=== PATIENT | female | born 1965 | race Caucasian/White ===

== ENCOUNTER → 2018-05-09 12:06 | Outpatient (CLI) | payer BC, SELFPAY ==
[2018-05-09 12:43] LABS: Basophils # 0.1 K/mm3 (0-0.2); Basophils % 0.9 % (0.1-2.0); Eosinophils # 0.3 K/mm3 (0.0-0.4); Eosinophils % 4.2 % (0.1-12.0); Hematocrit 46.1 % (37.0-47.0); Hemoglobin 14.5 g/dL (12.2-16.2); Lymphocytes # 2.2 K/mm3 (0.7-4.5); Lymphocytes % 32.9 K/mm3 (10-50); Mean Corpuscular HGB Conc 31.5 g/dL (31.8-35.4); Mean Corpuscular Hemoglobin 28.5 pg (27.0-31.2); Mean Corpuscular Volume 90.4 fl (81-99); Mean Platelet Volume 6.9 fl (7.4-10.4); Monocytes # 0.3 K/mm3 (0.1-1.0); Monocytes % 4.9 % (1.7-9.3); Neutrophils # 3.8 K/mm3 (1.8-7.8); Neutrophils % 57.2 % (37.0-80.0); Platelet Count 300 K/mm3 (142-424); Red Cell Distribution Width 13.3 % (11.5-17.5); White Blood Count 6.7 K/mm3 (4.8-10.8)
[2018-05-09 14:27] LABS: Alanine Aminotransferase 39 U/L (12-78); Albumin Level 4.6 gm/dL (3.4-5.0); Albumin/Globulin Ratio 1.3 (1.1-1.8); Alkaline Phosphatase 99 U/L (46-116); Anion Gap 14.3 mEq/L (5-15); Aspartate Amino Transferase 26 U/L (15-37); Bilirubin,Total 0.4 mg/dL (0.2-1.0); Blood Urea Nitrogen 15 mg/dL (7-18); Calcium 9.7 mg/dL (8.5-10.1); Carbon Dioxide 26 mmol/L (21.0-32.0); Chloride 108 mmol/L (98-107); Chol/HDL Ratio 3.3 (1-3.5); Cholesterol 194 mg/dL (140-200); Creatinine,Serum 0.76 mg/dL (0.55-1.02); Estimated Glomerular Filt Rate 79 ml/min (>60); Ferritin 129 ng/mL (8-388); GFR (African American) 96 ML/MIN (>60); Globulin 3.6 gm/dl (1.3-3.2); Glucose 90 mg/dL (74-106); HDL Cholesterol 59 mg/dL (29-89); LDL Cholesterol 118 mg/dL (0-130); Potassium 4.3 mmoL/L (3.5-5.1); Sodium 144 mmol/L (136-145); Thyroid Stimulating Hormone 2.35 uIU/ml (0.358-3.740); Total Protein,Serum 8.2 gm/dL (6.4-8.2); Triglycerides 87 mg/dL (30-200); VLDL Cholesterol 17 mg/dL (0-40)
[2018-05-10 17:01] LABS: Folate >20.0 ng/mL (>3.0); Vitamin B12 567 pg/mL (232-1245)
== END ==
PROVIDERS: Visit Provider Nurse Practitioner Family
DX: Z00.00 Encounter for general adult medical examination without abnormal findings (principal); R20.2 Paresthesia of skin; K58.1 Irritable bowel syndrome with constipation
CPT/HCPCS: 36415; 80053; 80061; 82607; 82728; 82746; 84443; 85025

== ENCOUNTER → 2018-05-23 08:48 | Outpatient (CLI) | payer BC, SELFPAY ==
--- NOTE | 2018-05-23 08:54 | MR_ITS ---
MR head/brain wo/w con HISTORY: ITS.REASON: VERTIGO, PARESTHESIA, ABNORMAL GAIT ORDERING PHYSICIAN: Bernie Vazquez PATIENT AGE: 52 years Comparison: 05/09/2011 TECHNIQUE: Standard multiplanar multiecho sequences are performed without and with gadolinium enhancement . FINDINGS: No midline shift, mass effect, intracranial hemorrhage, or hydrocephalus is evident. No enhancing lesions. Cerebellopontine angle, cerebellum, and brainstem are unremarkable. There is normal flanagan-white matter differentiation with no white matter lesions evident. No evidence of acute infarction. The hippocampal gyri are unremarkable and the temporal horns are symmetric. The pituitary and optic chiasm are unremarkable. No cerebellar ectopia. No mastoid effusion or sinus air-fluid level IMPRESSION: Negative MRI of the brain without and with contrast. No acute finding with no significant change
--- NOTE | 2018-05-23 12:57 | HMH.ITSHM ---
MAGNESIUM CITRATE COLLEGAN ASPIRIN 81MG NEXIUM B-12 VINNIE VITAMIN D MILK THISTLE
== END ==
PROVIDERS: Visit Provider Nurse Practitioner Family
DX: R42 Dizziness and giddiness (principal); R20.2 Paresthesia of skin; R26.9 Unspecified abnormalities of gait and mobility
CPT/HCPCS: 70553; A9576

== ENCOUNTER → 2018-06-23 13:31 | Outpatient (POV) | payer BC, SELFPAY | PROVIDERS: Visit Provider Specialist | DX: R26.9 Unspecified abnormalities of gait and mobility (principal); R20.2 Paresthesia of skin | CPT/HCPCS: 95907; 95909 ==

== ENCOUNTER → 2018-10-07 10:30 | Outpatient (POV) | payer BC, SELFPAY | PROVIDERS: Visit Provider Dermatology | DX: Z00.00 Encounter for general adult medical examination without abnormal findings (principal) ==

== ENCOUNTER → 2018-10-21 13:19 | Outpatient (CLI) | payer BC, SELFPAY ==
[2018-10-21 16:42] LABS: T4 (Thyroxine) 9.3 ug/dl (4.7-13.3); Thyroid Stimulating Hormone 3.35 uIU/ml (0.358-3.740); Triiodothryronine (T3) Uptake 32 % (31-39)
== END ==
PROVIDERS: Visit Provider Nurse Practitioner Family
DX: M79.7 Fibromyalgia (principal); R20.2 Paresthesia of skin
CPT/HCPCS: 36415; 84436; 84443; 84479

== ENCOUNTER → 2019-02-13 08:06 | Outpatient (CLI) | payer BC, SELFPAY ==
[2019-02-13 08:56] LABS: Basophils # 0.1 K/mm3 (0-0.2); Eosinophils # 0.3 K/mm3 (0.0-0.4); Eosinophils % 4.8 % (0.1-12.0); Hematocrit 39.9 % (37.0-47.0); Hemoglobin 13.4 g/dL (12.2-16.2); Lymphocytes # 2.4 K/mm3 (0.7-4.5); Lymphocytes % 40.3 % (10-50); Mean Corpuscular HGB Conc 33.5 g/dL (31.8-35.4); Mean Corpuscular Hemoglobin 29.9 pg (27.0-31.2); Mean Corpuscular Volume 89.4 fl (81-99); Mean Platelet Volume 6.8 fl (7.4-10.4); Monocytes # 0.3 K/mm3 (0.1-1.0); Monocytes % 5.5 % (1.7-9.3); Neutrophils # 2.8 K/mm3 (1.8-7.8); Neutrophils % 48.5 % (37.0-80.0); Platelet Count 256 K/mm3 (142-424); Red Blood Count 4.46 M/mm3 (4.20-5.40); Red Cell Distribution Width 13.6 % (11.5-17.5); White Blood Count 5.8 K/mm3 (4.8-10.8)
[2019-02-13 09:54] LABS: Anion Gap 11.1 mEq/L (5-15); Blood Urea Nitrogen 18 mg/dL (7-18); Calcium 9.3 mg/dL (8.5-10.1); Carbon Dioxide 27 mmol/L (21.0-32.0); Chloride 107 mmol/L (98-107); Creatinine,Serum 0.75 mg/dL (0.55-1.02); Estimated Glomerular Filt Rate 80 ml/min (>60); Free Thyroxine Index 3.5 ug/dL (5.93-13.13); GFR (African American) 97 ML/MIN (>60); Glucose 92 mg/dL (74-106); Magnesium 2.3 mg/dL (1.4-2.2); Potassium 4.1 mmoL/L (3.5-5.1); Sodium 141 mmol/L (136-145); T4 (Thyroxine) 10.2 ug/dl (4.7-13.3); Thyroid Stimulating Hormone 2.11 uIU/ml (0.358-3.740); Triiodothryronine (T3) Uptake 34 % (31-39)
[2019-02-16 08:23] LABS: Thyroid Peroxidase Antibodies 7 IU/mL (0-34); Vitamin D 25 Hydroxy 41.3 ng/mL (30.0-100.0)
== END ==
PROVIDERS: Visit Provider Nurse Practitioner Family
DX: R42 Dizziness and giddiness (principal); R79.89 Other specified abnormal findings of blood chemistry
CPT/HCPCS: 36415; 80048; 80053; 82652; 83735; 84436; 84443; 84479; 85025; 86376

== ENCOUNTER → 2019-04-17 09:55 | Outpatient (CLI) | payer BC, SELFPAY ==
--- NOTE | 2019-04-17 | CI_ITS ---
Cerebrovascular Exam Indications: 780.4 Dizziness and giddiness. IMPRESSIONS 1. The left internal carotid artery reveals no evidence of plaque or stenosis. 2. The bilateral vertebral arteries are patent with normal antegrade flow. 3. Study suggests less than 20% stenosis involving the right internal carotid artery. History: Risk factors: Hypertension. Carotid duplex study. Complete study and Doppler flow study including spectral analysis, color and flanagan scale imaging. Height: Height: 157.5cm. Height: 62in. Weight: Weight: 77.6kg. Weight: 170.6lb. Body mass index: BMI: 31.3kg/m^2. Body surface area: BSA: 1.87m^2. Location: Vascular laboratory. Patient status: Outpatient. Tables: Arterial flow: + +--------+--------+ Location V sys V ed + +--------+--------+ Right CCA - proximal 119cm/s 23.6cm/s + +--------+--------+ Right CCA - distal 113cm/s 25.9cm/s + +--------+--------+ Right ECA 105cm/s -------- + +--------+--------+ Right ICA - proximal 83.1cm/s 26.5cm/s + +--------+--------+ Right ICA - mid 133cm/s 32.8cm/s + +--------+--------+ Right ICA - distal 102cm/s 32.8cm/s + +--------+--------+ Right vertebral 61.5cm/s -------- + +--------+--------+ Left CCA - proximal 131cm/s 25.1cm/s + +--------+--------+ Left CCA - distal 95.7cm/s 23.7cm/s + +--------+--------+ Left ECA 105cm/s -------- + +--------+--------+ Left ICA - proximal 99.9cm/s 28.6cm/s + +--------+--------+ Left ICA - mid 109cm/s 34.2cm/s + +--------+--------+ Left ICA - distal 88.7cm/s 29.3cm/s + +--------+--------+ Left vertebral 53.1cm/s -------- + +--------+--------+ Velocity ratios: + + + + + + Right, V sys Right, V ed Left, V sys Left, V ed + + + + + + Max ICA/dist CCA 1.18 1.27 1.14 1.44 + + + + + + (Report amended ) Electronically signed by: Erik Reyes [id number]
== END ==
PROVIDERS: PCP Nurse Practitioner Family; Visit Provider Nurse Practitioner Family
DX: R42 Dizziness and giddiness (principal)
CPT/HCPCS: 93880

== ENCOUNTER → 2019-04-29 13:37 | Outpatient (CLI) | payer BC, SELFPAY ==
--- NOTE | 2019-04-29 13:42 | XR_ITS ---
XR knee RT 4V HISTORY: ITS.REASON: right knee pain ORDERING PHYSICIAN: Demetrius Romero MD PATIENT AGE: 53 years COMPARISON: None FINDINGS: No fracture or dislocation. No lytic or blastic change. Normal mineralization. There are mild osteoarthritic changes of the medial and lateral compartment and patellofemoral joint. IMPRESSION: Mild osteoarthritic changes of the right knee
== END ==
PROVIDERS: PCP Nurse Practitioner Family; Visit Provider Orthopaedic Surgery
DX: M25.561 Pain in right knee (principal); M71.20 Synovial cyst of popliteal space [Baker], unspecified knee
CPT/HCPCS: 73564

== ENCOUNTER → 2019-05-06 08:38 | Outpatient (CLI) | payer BC, SELFPAY ==
--- NOTE | 2019-05-06 08:39 | MR_ITS ---
MR knee RT wo con HISTORY: Lateral and posterior knee pain with limited range of motion ITS.REASON: evaluate for meniscal tear ORDERING PHYSICIAN: Demetrius Romero MD PATIENT AGE: 53 years Comparison: 04/29/2019 TECHNIQUE: Standard multiplanar multiecho sequences are performed without contrast. FINDINGS: Cruciate ligaments are intact. Collateral ligaments have an unremarkable appearance. The patellar tendon and quadriceps tendon are unremarkable. No definite meniscal tear. There is some heterogeneous signal intensity involving the posterior horn of the medial meniscus. This however does not meet the strict MRI criteria for meniscal tear. There are mild osteoarthritic changes of all 3 compartments. There is thinning of the patellar cartilage. There is a small knee joint effusion. No fracture or dislocation. No bone marrow edema. IMPRESSION: 1. No evidence of internal derangement. 2. Chondromalacia patella. 3. Mild osteoarthritic changes with small knee joint effusion
== END ==
PROVIDERS: PCP Nurse Practitioner Family; Visit Provider Orthopaedic Surgery
DX: M25.561 Pain in right knee (principal); G89.29 Other chronic pain
CPT/HCPCS: 73721

== ENCOUNTER → 2019-06-12 07:48 | Outpatient (CLI) | payer BC, SELFPAY ==
[2019-06-12 08:36] LABS: Basophils % 0.8 % (0.1-2.0); Eosinophils # 0.2 K/mm3 (0.0-0.4); Eosinophils % 3.4 % (0.1-12.0); Hematocrit 40.7 % (37.0-47.0); Hemoglobin 12.7 g/dL (12.2-16.2); Lymphocytes # 2.2 K/mm3 (0.7-4.5); Lymphocytes % 42.9 % (10-50); Mean Corpuscular HGB Conc 31.2 g/dL (31.8-35.4); Mean Corpuscular Hemoglobin 27.6 pg (27.0-31.2); Mean Corpuscular Volume 88.5 fl (81-99); Mean Platelet Volume 6.9 fl (7.4-10.4); Monocytes # 0.3 K/mm3 (0.1-1.0); Monocytes % 5.9 % (1.7-9.3); Neutrophils # 2.4 K/mm3 (1.8-7.8); Neutrophils % 46.9 % (37.0-80.0); Platelet Count 268 K/mm3 (142-424); Red Cell Distribution Width 13.4 % (11.5-17.5); White Blood Count 5.1 K/mm3 (4.8-10.8)
[2019-06-12 10:10] LABS: Erythrocyte Sedimentation Rate 13 mm/hr (0-30)
[2019-06-12 11:01] LABS: Alanine Aminotransferase 42 U/L (12-78); Albumin/Globulin Ratio 1.3 (1.1-1.8); Alkaline Phosphatase 79 U/L (46-116); Anion Gap 12.2 mEq/L (5-15); Aspartate Amino Transferase 17 U/L (15-37); Bilirubin,Total 0.4 mg/dL (0.2-1.0); Blood Urea Nitrogen 13 mg/dL (7-18); Calcium 9.3 mg/dL (8.5-10.1); Carbon Dioxide 26 mmol/L (21.0-32.0); Chloride 108 mmol/L (98-107); Chol/HDL Ratio 3.8 (1-3.5); Cholesterol 165 mg/dL (140-200); Creatinine,Serum 0.86 mg/dL (0.55-1.02); Estimated Glomerular Filt Rate 69 ml/min (>60); Free Thyroxine Index 3.2 ug/dL (5.93-13.13); GFR (African American) 83 ML/MIN (>60); Globulin 3.2 gm/dl (1.3-3.2); Glucose 90 mg/dL (74-106); HDL Cholesterol 44 mg/dL (29-89); LDL Cholesterol 93 mg/dL (0-130); Potassium 4.2 mmoL/L (3.5-5.1); Sodium 142 mmol/L (136-145); T4 (Thyroxine) 9.7 ug/dl (4.7-13.3); Thyroid Stimulating Hormone 1.87 uIU/ml (0.358-3.740); Total Protein,Serum 7.2 gm/dL (6.4-8.2); Triglycerides 139 mg/dL (30-200); Triiodothryronine (T3) Uptake 33 % (31-39); VLDL Cholesterol 28 mg/dL (0-40)
[2019-06-13 18:16] LABS: Vitamin B12 767 pg/mL (232-1245)
== END ==
PROVIDERS: Visit Provider Nurse Practitioner Family
DX: Z00.00 Encounter for general adult medical examination without abnormal findings (principal); M12.9 Arthropathy, unspecified; R20.2 Paresthesia of skin; R79.89 Other specified abnormal findings of blood chemistry
CPT/HCPCS: 36415; 80053; 80061; 82607; 84436; 84443; 84479; 85025; 85651

== ENCOUNTER → 2019-07-22 13:32 | Outpatient (CLI) | payer BC, SELFPAY ==
[2019-07-22 15:36] LABS: Free T4 (Free Thyroxine) 1.11 ng/dl (0.76-1.46); Thyroid Stimulating Hormone 2.03 uIU/ml (0.358-3.740)
== END ==
PROVIDERS: Visit Provider Nurse Practitioner Family
DX: E03.9 Hypothyroidism, unspecified (principal)
CPT/HCPCS: 36415; 84439; 84443

== ENCOUNTER → 2020-01-19 08:16 | Outpatient (CLI) | payer BC, SELFPAY ==
[2020-01-19 09:31] LABS: Free T4 (Free Thyroxine) 1.34 ng/dl (0.78-2.19)
[2020-01-19 09:45] LABS: Thyroid Stimulating Hormone 1.78 uIU/mL (0.465-4.68)
== END ==
PROVIDERS: Visit Provider Nurse Practitioner Family
DX: E03.9 Hypothyroidism, unspecified (principal)
CPT/HCPCS: 36415; 84439; 84443

== ENCOUNTER → 2020-03-28 09:05 | Outpatient (CLI) | payer BC, SELFPAY ==
--- NOTE | 2020-03-28 09:20 | US_ITS ---
PROCEDURE: US SOFT TISSUE HEAD AND NECK CLINICAL INDICATION: LIPOMA Palpable mass along the mid back near the scapula COMPARISON: No exams were available for comparison FINDINGS: No discrete abnormality apparent by ultrasound. No cystic or solid lesions evident. IMPRESSION: No discrete abnormality demonstrated. If there is indeed a palpable nodule then CT or MRI may provide further evaluation. Dictated by: John Coe MD 03/28/2020 17:47 Electronically signed by John Coe MD in [place] 03/28/2020 17:47
== END ==
PROVIDERS: PCP Nurse Practitioner Family; Visit Provider Nurse Practitioner Family
DX: Q79.8 Other congenital malformations of musculoskeletal system (principal)
CPT/HCPCS: 76536

== ENCOUNTER → 2020-08-15 09:22 | Outpatient (CLI) | payer BC, SELFPAY ==
[2020-08-15 09:53] LABS: Basophils # 0.1 K/mm3 (0-0.2); Basophils % 1.3 % (0.1-2.0); Eosinophils # 0.2 K/mm3 (0.0-0.4); Eosinophils % 3.8 % (0.1-12.0); Hematocrit 42.3 % (37.0-47.0); Lymphocytes % 30.5 % (10-50); Mean Corpuscular HGB Conc 33.2 g/dL (31.8-35.4); Mean Corpuscular Hemoglobin 30.8 pg (27.0-31.2); Mean Corpuscular Volume 92.9 fl (81-99); Mean Platelet Volume 7.3 fl (7.4-10.4); Monocytes # 0.4 K/mm3 (0.1-1.0); Monocytes % 5.5 % (1.7-9.3); Neutrophils # 3.8 K/mm3 (1.8-7.8); Neutrophils % 58.9 % (37.0-80.0); Platelet Count 282 K/mm3 (142-424); Red Blood Count 4.55 M/mm3 (4.20-5.40); White Blood Count 6.4 K/mm3 (4.8-10.8)
[2020-08-15 10:16] LABS: Chloride 108 mmol/L (98-107)
[2020-08-15 10:17] LABS: Potassium 4.6 mmoL/L (3.5-5.1); Sodium 144 mmol/L (136-145)
[2020-08-15 10:19] LABS: Alanine Aminotransferase 30 U/L (12-78); Alkaline Phosphatase 75 U/L (38-126); Anion Gap 13.6 mEq/L (5-15); Aspartate Amino Transferase 33 U/L (14-36); Bilirubin,Total 0.5 mg/dl (0.2-1.3); Blood Urea Nitrogen 13 mg/dl (7-17); Carbon Dioxide 27 mmol/L (22.0-30.0); Estimated Glomerular Filt Rate 74 ml/min (>60); GFR (African American) 89 ML/MIN (>60)
[2020-08-15 10:20] LABS: Albumin Level 4.6 g/dl (3.5-5.0); Albumin/Globulin Ratio 1.7 (1.1-1.8); Calcium 10.1 mg/dl (8.4-10.2); Globulin 2.7 g/dL (1.3-3.2); Glucose 109 mg/dl (74-100); Total Protein,Serum 7.3 g/dl (6.3-8.2)
[2020-08-15 10:35] LABS: Free T4 (Free Thyroxine) 1.38 ng/dl (0.78-2.19)
[2020-08-15 10:50] LABS: Thyroid Stimulating Hormone 2.32 uIU/mL (0.465-4.68)
== END ==
PROVIDERS: Visit Provider Nurse Practitioner Family
DX: E03.9 Hypothyroidism, unspecified (principal); K92.89 Other specified diseases of the digestive system; K58.2 Mixed irritable bowel syndrome
CPT/HCPCS: 36415; 80053; 84439; 84443; 85025

== ENCOUNTER 2021-01-07 12:37 | Emergency (ER) | payer BC, SELFPAY ==
[2021-01-07 12:40] VITALS: BP 132/70; PULSE 70; RESP 20; TEMP 36.8; O2SAT 97; BMI 32.9
[2021-01-07 13:09] VITALS: BP 134/74; PULSE 72; RESP 16; TEMP 36.8; O2SAT 98; BMI 29.7
--- NOTE | 2021-01-07 13:40 | HMH.EDUTC ---
[facility] [place] Clinical Impression: Right leg pain Disposition: Home, Self-Care Condition on Discharge: Good Instructions: DI for Leg Pain Additional Instructions: Rest the extremity, Elevate the extremity as tolerated while you are resting. Take ibuprofen for pain. I sent in a prescription to your pharmacy. Follow up with Dr. Sanchez (orthopedics) if you continue to have leg pain. I put in a referral but you need to call her office and schedule an appointment. Follow up with your regular doctor. GO TO THE ER FOR ANY WORSENING SYMPTOMS Prescriptions: Ibuprofen [Ibuprofen 600mg Tablet] 600 mg PO Q6HP PRN #30 tab PRN Reason: Mild Pain Transmission Status: Received by [facility] #[id number] Referrals: Bernie Vazquez APRN [Primary Care Provider] - Ankita Sanchez MD [Physician] - Time of Disposition: 15:44 Medical Decision Making - Medical Records Medical records reviewed: No: I reviewed the patient's medical records. - Sanjay Inquiry Pt receiving controlled substance: No Vital Signs: 01/07/21 12:40 01/07/21 13:09 01/07/21 15:58 Temperature 98.3 F 98.2 F 98.2 F Temperature Source Oral Oral Pulse Rate 72 Pulse Rate [Right Brachial] 70 72 Respiratory Rate 20 16 16 Blood Pressure 134/74 Blood Pressure [Right Arm] 132/70 134/74 Blood Pressure Mean [Right Arm] 90 94 Blood Pressure Source [Right Arm] Automatic Cuff Automatic Cuff Blood Pressure Position [Right Arm] Sitting Sitting 02 Sat by Pulse Oximetry 97 98 Oxygen Delivery Method Room Air Room Air - US Data US Images: Lower Extremity ED US Reviewed: Yes: I have reviewed the patient's US results Preliminary Findings: Normal/NAD [facility] [place] - General Stated complaint: possible blood clot in Rt leg Time Seen by Provider: 01/07/21 13:40 Mode of Arrival: Ambulatory Source of Information: Patient Limitations: No Limitations Description of Symptoms (Recalled from Triage Doc. by RN): pt thinks she may have a blood clot in her leg - History of Present Illness Provider Complaint: She states that she has been having right leg pain and some mild swelling for the past 1 week. She is concerned about possibly having a dvt. She had a blood clot in that leg approx 8 years ago. She takes an aspirin daily since then. She denies any shortness of breath and chest pain. - Related Data Home Medications Medication Instructions Recorded Confirmed Vit D3/Folic Acid/B2/B6/B12 1 each PO DAILY 01/08/19 05/19/19 [Folgard Tablet] collagen (bovine) 100 % topical 1 applic TOPICAL DAILY 04/29/19 05/19/19 powder esomeprazole magnesium 40 mg 40 mg PO DAILY 04/29/19 05/19/19 capsule,delayed release levothyroxine 25 mcg capsule 25 mcg PO DAILY 04/29/19 05/19/19 magnesium 200 mg tablet 200 mg PO DAILY 04/29/19 05/19/19 omega-3 fatty acids 1,000 mg 1,000 mg PO DAILY 04/29/19 05/19/19 capsule vitamin B complex 1 tab PO DAILY 04/29/19 05/19/19 Previous Rx's Medication Instructions Recorded Ibuprofen [Ibuprofen 600mg 600 mg PO Q6HP PRN #30 tab 01/07/21 Tablet] Allergies Allergy/AdvReac Type Severity Reaction Status Date / Time hydrocodone Allergy Unknown ITCHY,DIZZY Verified 05/19/19 14:48 ,VOMITING oxycodone Allergy Unknown ITCHY,DIZZY Verified 05/19/19 14:48 ,VOMITING escitalopram [From Lexapro] Allergy Verified 05/19/19 14:48 - Worker's Comp Is this a Worker's Comp case?: No [facility] History - Hepatitis A Screen Drug use history?: No High risk sexual behaviors?: No History of sexually transmitted infection?: No Currently employed?: No Childcare worker?: No Do you have indoor plumbing?: Yes Do you have electricity?: Yes Attestation statement:: This patient has been screened for Hepatitis A risk factors. I have reviewed the patient's past medical history: Yes Medical History: Reports:: Gastroesophageal Reflux Disease(GERD), Hyperlipidemia, Hypertension Denies:: Diabetes Me
--- NOTE | 2021-01-07 13:47 | CA_ITS ---
APPROVED REPORT Right Lower Extremity Venous Study for DVT. 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 Patient denies trauma. States she had a DVT in the past around 2012. She said her right leg has been hurting clear up to her hip x 1 month. Today while shopping she felt a pop and felt her leg to be pulsating so she decided to be checked out because of her history of DVT. Risk Factors Prior Phlebitis/DVT Obesity Medications Aspirin 81 mg occasionally Vein Imaging CFV (R): compressive, spontaneous, phasic, augmentation FEM (R): compressive, spontaneous, phasic, augmentation POP (R): compressive, spontaneous, phasic, augmentation PTV (R): Compressible GSV (R): compressive, spontaneous, phasic, augmentation SSV (R): Compressible Peroneals (R):Compressible GAS (R): Compressible Findings No evidence of DVT or superficial thrombophlebitis in the veins scanned of the right lower extremity. Conclusion No evidence of DVT or superficial thrombophlebitis in the veins scanned of the right lower extremity. Critical Notification Critical Value: No Physician Notified Date: 01/07/2021 Time: 15:44 Physician Name: Chte Zamudio APRN [facility] Electronically signed by : Hannah Hagan MD 01/12/2021 13:12:56
[2021-01-07 15:58] VITALS: BP 134/74; PULSE 72; RESP 16; TEMP 36.8; O2SAT 98
== END 2021-01-07 15:59 | disposition home or self-care (01) ==
PROVIDERS: Emergency Provider Nurse Practitioner Family; PCP Nurse Practitioner Family
DX: M79.604 Pain in right leg (principal); K21.9 Gastro-esophageal reflux disease without esophagitis; I10 Essential (primary) hypertension; E78.5 Hyperlipidemia, unspecified; Z90.49 Acquired absence of other specified parts of digestive tract; Z79.899 Other long term (current) drug therapy
CPT/HCPCS: 93971; 99202; G0463

== ENCOUNTER → 2021-02-03 09:15 | Outpatient (CLI) | payer BC, SELFPAY ==
[2021-02-03 10:04] LABS: Basophils # 0.1 K/mm3 (0-0.2); Eosinophils # 0.3 K/mm3 (0.0-0.4); Eosinophils % 3.9 % (0.1-12.0); Hemoglobin 13.7 g/dL (12.2-16.2); Lymphocytes # 2.4 K/mm3 (0.7-4.5); Lymphocytes % 35.5 % (10-50); Mean Corpuscular HGB Conc 32.6 g/dL (31.8-35.4); Mean Corpuscular Hemoglobin 29.6 pg (27.0-31.2); Mean Corpuscular Volume 90.6 fl (81-99); Mean Platelet Volume 7.3 fl (7.4-10.4); Monocytes # 0.4 K/mm3 (0.1-1.0); Monocytes % 5.5 % (1.7-9.3); Neutrophils # 3.7 K/mm3 (1.8-7.8); Neutrophils % 54.1 % (37.0-80.0); Platelet Count 284 K/mm3 (142-424); Red Blood Count 4.63 M/mm3 (4.20-5.40); Red Cell Distribution Width 13.8 % (11.5-17.5); White Blood Count 6.8 K/mm3 (4.8-10.8)
[2021-02-03 10:33] LABS: Chloride 108 mmol/L (98-107); Potassium 4.7 mmoL/L (3.5-5.1); Sodium 141 mmol/L (136-145)
[2021-02-03 10:36] LABS: Alanine Aminotransferase 27 U/L (12-78); Albumin Level 4.6 g/dl (3.5-5.0); Albumin/Globulin Ratio 1.4 (1.1-1.8); Alkaline Phosphatase 91 U/L (38-126); Anion Gap 10.7 mEq/L (5-15); Aspartate Amino Transferase 31 U/L (14-36); Bilirubin,Total 0.6 mg/dl (0.2-1.3); Blood Urea Nitrogen 20 mg/dl (7-17); Carbon Dioxide 27 mmol/L (22.0-30.0); Estimated Glomerular Filt Rate 65 ml/min (>60); GFR (African American) 78 ML/MIN (>60); Globulin 3.2 g/dL (1.3-3.2); Total Protein,Serum 7.8 g/dl (6.3-8.2)
[2021-02-03 10:37] LABS: Calcium 9.7 mg/dl (8.4-10.2); Glucose 95 mg/dl (74-100)
[2021-02-03 11:07] LABS: Thyroid Stimulating Hormone 1.57 uIU/mL (0.465-4.68)
[2021-02-03 11:18] LABS: Free T4 (Free Thyroxine) 1.42 ng/dl (0.78-2.19)
== END ==
PROVIDERS: Visit Provider Nurse Practitioner Family
DX: E03.9 Hypothyroidism, unspecified (principal); K58.2 Mixed irritable bowel syndrome
CPT/HCPCS: 36415; 80053; 84439; 84443; 85025

== ENCOUNTER → 2021-08-10 08:19 | Outpatient (CLI) | payer BC, SELFPAY ==
[2021-08-10 08:44] LABS: Basophils % 0.7 % (0.1-2.0); Eosinophils # 0.2 K/mm3 (0.0-0.4); Eosinophils % 4.3 % (0.1-12.0); Hematocrit 42.1 % (37.0-47.0); Hemoglobin 13.7 g/dL (12.2-16.2); Lymphocytes % 36.7 % (10-50); Mean Corpuscular HGB Conc 32.5 g/dL (31.8-35.4); Mean Corpuscular Hemoglobin 30.3 pg (27.0-31.2); Mean Corpuscular Volume 93.5 fl (81-99); Monocytes # 0.3 K/mm3 (0.1-1.0); Monocytes % 5.9 % (1.7-9.3); Neutrophils # 2.8 K/mm3 (1.8-7.8); Neutrophils % 52.4 % (37.0-80.0); Platelet Count 272 K/mm3 (142-424); Red Cell Distribution Width 13.4 % (11.5-17.5); White Blood Count 5.4 K/mm3 (4.8-10.8)
[2021-08-10 10:42] LABS: Free T4 (Free Thyroxine) 1.31 ng/dl (0.78-2.19)
[2021-08-10 12:15] LABS: Chloride 108 mmol/L (98-107)
[2021-08-10 12:16] LABS: Potassium 4.3 mmoL/L (3.5-5.1); Sodium 144 mmol/L (136-145)
[2021-08-10 12:18] LABS: Blood Urea Nitrogen 16 mg/dl (7-17)
[2021-08-10 12:19] LABS: Alanine Aminotransferase 30 U/L (12-78); Albumin Level 4.5 g/dl (3.5-5.0); Albumin/Globulin Ratio 1.5 (1.1-1.8); Alkaline Phosphatase 83 U/L (38-126); Anion Gap 16.3 mEq/L (5-15); Aspartate Amino Transferase 33 U/L (14-36); Bilirubin,Total 0.3 mg/dl (0.2-1.3); Calcium 9.4 mg/dl (8.4-10.2); Carbon Dioxide 24 mmol/L (22.0-30.0); Chol/HDL Ratio 5.4 (1-3.5); Cholesterol 215 mg/dl (140-200); Estimated Glomerular Filt Rate 74 ml/min (>60); GFR (African American) 89 ML/MIN (>60); Glucose 98 mg/dl (74-100); HDL Cholesterol 40 mg/dl (40-60); Total Protein,Serum 7.5 g/dl (6.3-8.2); Triglycerides 215 mg/dl (30-150); VLDL Cholesterol 43 mg/dL (0-40)
[2021-08-10 12:30] LABS: Direct LDL Cholesterol 122.64 mg/dL (100-129)
[2021-08-10 12:50] LABS: Thyroid Stimulating Hormone 1.69 uIU/mL (0.465-4.68)
== END ==
PROVIDERS: Visit Provider Nurse Practitioner Family
DX: Z00.00 Encounter for general adult medical examination without abnormal findings (principal); E03.9 Hypothyroidism, unspecified
CPT/HCPCS: 36415; 80053; 80061; 84439; 84443; 85025

== ENCOUNTER 2024-11-14 08:18 | Outpatient (CLI) | payer BC, SELFPAY ==
[2024-11-14 09:19] LABS: Eosinophils % 4.4 % (0.1-12.0); Hematocrit 40.4 % (37.0-47.0); Hemoglobin 13.3 g/dL (12.2-16.2); Lymphocytes % 42.6 % (10-50); Mean Corpuscular HGB Conc 32.9 g/dL (31.8-35.4); Mean Corpuscular Hemoglobin 29.4 pg (27.0-31.2); Mean Corpuscular Volume 89.4 fl (81-99); Mean Platelet Volume 9.3 fl (7.4-10.4); Monocytes % 6.6 % (1.7-9.3); Neutrophils % 45.4 % (37.0-80.0); Platelet Count 247 K/mm3 (142-424); Red Blood Count 4.52 M/mm3 (4.20-5.40); White Blood Count 6.4 K/mm3 (4.8-10.8)
[2024-11-14 09:20] LABS: Basophils # 0.1 K/mm3 (0-0.2); Basophils % 0.8 % (0.1-2.0); Eosinophils # 0.3 K/mm3 (0.0-0.4); Lymphocytes # 2.7 K/mm3 (0.7-4.5); Monocytes # 0.4 K/mm3 (0.1-1.0); Neutrophils # 2.9 K/mm3 (1.8-7.8)
[2024-11-14 10:19] LABS: Alanine Aminotransferase 34 U/L (12-78); Alkaline Phosphatase 67 U/L (38-126); Aspartate Amino Transferase 42 U/L (14-36); Bilirubin,Total 0.8 mg/dl (0.2-1.3); Blood Urea Nitrogen 20 mg/dl (7-17); Calcium 9.5 mg/dl (8.4-10.2); Chloride 108 mmol/L (98-107); Chol/HDL Ratio 6.3 (1-3.5); Cholesterol 220 mg/dl (140-200); Estimated Glomerular Filt Rate 64 ml/min (>60); GFR (African American) 77 ML/MIN (>60); Glucose 92 mg/dl (74-100); HDL Cholesterol 35 mg/dl (40-60); Potassium 4.5 mmoL/L (3.5-5.1); Sodium 141 mmol/L (136-145); Total Protein,Serum 7.4 g/dl (6.3-8.2); Triglycerides 228 mg/dl (30-150); VLDL Cholesterol 46 mg/dL (0-40)
[2024-11-14 10:20] LABS: Albumin Level 4.5 g/dl (3.5-5.0); Albumin/Globulin Ratio 1.6 (1.1-1.8); Anion Gap 9.5 mEq/L (5-15); Carbon Dioxide 28 mmol/L (22.0-30.0); Globulin 2.9 g/dL (1.3-3.2)
[2024-11-14 10:30] LABS: Direct LDL Cholesterol 132.82 mg/dL (100-129)
[2024-11-14 10:50] LABS: Thyroid Stimulating Hormone 2.66 uIU/mL (0.465-4.68)
[2024-11-14 12:03] LABS: Hemoglobin A1C 5.3 % (4.0-6.0)
== END 2024-11-14 23:59 | disposition home or self-care (01) ==
PROVIDERS: PCP Nurse Practitioner Family; Visit Provider Nurse Practitioner Family
DX: E03.9 Hypothyroidism, unspecified (principal); E78.5 Hyperlipidemia, unspecified; M12.9 Arthropathy, unspecified
CPT/HCPCS: 36415; 80050; 80053; 80061; 83036; 84443; 85025

== ENCOUNTER 2025-02-20 09:21 | Emergency (ER) | payer BC, SELFPAY ==
[2025-02-20] VITALS (9 sets, daily range): BP systolic 98–147; BP diastolic 61–80; PULSE 81–97; RESP 16–18; TEMP 36.7–36.9; O2SAT 93–99; BMI 32.0
[2025-02-20 09:39] LABS: Microscopic, Urine URINE MICROSCOPIC (MICROSCOPIC)
[2025-02-20 10:02] LABS: Lactate Venous 1.8 mmol/L (0.4-2.0); VBG Base Excess -4.4 mmol/L (-2.4-2.3); VBG HCO3 21.6 mmol/L (23-30); VBG Oxygen Saturation 67.5 % (50-70); VBG PCO2 42.4 mmol/L (35-51); VBG PH 7.33 mmol/L (7.31-7.41); VBG PO2 35.3 mmol/L (28-40); VBG Total CO2 22.9 mmol/L (23-27)
[2025-02-20 10:10] LABS: Basophils % 0.3 % (0.1-2.0); Eosinophils # 0.1 K/mm3 (0.0-0.4); Eosinophils % 0.9 % (0.1-12.0); Hematocrit 42.9 % (37.0-47.0); Hemoglobin 14.4 g/dL (12.2-16.2); Lymphocytes # 0.4 K/mm3 (0.7-4.5); Lymphocytes % 3.5 % (10-50); Mean Corpuscular HGB Conc 33.6 g/dL (31.8-35.4); Mean Corpuscular Hemoglobin 29.9 pg (27.0-31.2); Mean Corpuscular Volume 89.2 fl (81-99); Mean Platelet Volume 9.3 fl (7.4-10.4); Monocytes # 0.4 K/mm3 (0.1-1.0); Monocytes % 3.1 % (1.7-9.3); Neutrophils # 10.7 K/mm3 (1.8-7.8); Neutrophils % 91.8 % (37.0-80.0); Platelet Count 277 K/mm3 (142-424); Red Blood Count 4.81 M/mm3 (4.20-5.40); White Blood Count 11.6 K/mm3 (4.8-10.8)
[2025-02-20] MEDS: KETOROLAC 30MG/ML VIAL 15 MG IV (10:10)
[2025-02-20] MEDS: 0.9 % SODIUM CHLORIDE 1000ML 1,000 ML 999 ML IV (10:11)
[2025-02-20] MEDS: ONDANSETRON 4MG/2ML VIAL 4 MG IV (10:11)
[2025-02-20 10:12] LABS: Appearance,Urine CLEAR (Clear); Bilirubin,Urine Negative (Negative); Blood, Urine 1+ (Negative); Color,Urine YELLOW (Yellow); Glucose,Urine (UA) Negative (Negative); Ketones,Urine Negative (Negative); Leukocyte Esterase,Urine TRACE (Negative); Nitrate,Urine Negative (Negative); Protein,Urine TRACE (Negative); Specific Gravity, Urine >= 1.030 (1.005-1.030); Urobilinogen,Urine 0.2 EU/dl (0.2)
[2025-02-20 10:14] LABS: Albumin Level 4.9 g/dl (3.5-5.0); Chloride 106 mmol/L (98-107); Potassium 3.8 mmoL/L (3.5-5.1); Sodium 142 mmol/L (136-145)
[2025-02-20 10:17] LABS: Alanine Aminotransferase 34 U/L (12-78); Albumin/Globulin Ratio 1.3 (1.1-1.8); Alkaline Phosphatase 81 U/L (38-126); Anion Gap 14.8 mEq/L (5-15); Aspartate Amino Transferase 37 U/L (14-36); Bilirubin,Total 0.9 mg/dl (0.2-1.3); Blood Urea Nitrogen 20 mg/dl (7-17); Calcium 9.9 mg/dl (8.4-10.2); Carbon Dioxide 25 mmol/L (22.0-30.0); Creatinine Clearance Estimated 74 mL/min (50-200); Estimated Glomerular Filt Rate 73 ml/min (>60); GFR (African American) 88 ML/MIN (>60); Globulin 3.7 g/dL (1.3-3.2); Glucose 133 mg/dl (74-100); Lipase 67 U/L (23-300); Total Protein,Serum 8.6 g/dl (6.3-8.2)
--- NOTE | 2025-02-20 10:20 | HMH.EDGENADL ---
Discharge Plan Disposition Patient Disposition: Home, Self-Care Prescriptions Prescriptions: New ondansetron 4 mg tablet,disintegrating 4 mg PO Q6H PRN (Reason: nausea and vomiting) Qty: 10 0RF No Action levothyroxine 25 mcg capsule 25 mcg PO DAILY esomeprazole magnesium [Nexium] 40 mg capsule,delayed release(DR/EC) 40 mg PO DAILY vitamin B complex [B Complex-Vitamin B12] Tablet 1 tab PO DAILY collagen (bovine) 100 % powder 1 applic TOPICAL DAILY magnesium 200 mg tablet 200 mg PO DAILY omega-3 fatty acids [Fish Oil Concentrate] 1,000 mg capsule 1,000 mg PO DAILY ibuprofen 600 MG tablet 600 mg PO Q6HP PRN (Reason: Mild Pain) Qty: 30 0RF vit D3-folic bkfb-E3-P2-B12 1 EACH tablet 1 each PO DAILY Referrals Follow up/Referrals: Bernie Vazquez APRN [Primary Care Provider] - See instructions Activity Restrictions/Add. Instructions Additional Instructions/Restrictions: Call your family doctor to establish care for this visit to the emergency department and schedule follow-up within 48 hours to ensure improvement. If you have any worsening of your condition or any other concerning signs or symptoms, return to the emergency department or your primary care doctor for further evaluation. Zofran every 6 hours as needed for nausea and vomiting Clinical Impressions Clinical Impression: Vomiting and diarrhea Instructions Patient Instructions: DI for Acute Abdominal Pain Print Language Print Language: Macedonian Discharge ED Provider: Royal [facility] General Adult HPI General Chief complaint: Abdominal Pain Stated complaint: vomiting, abd pain Time Seen by Provider: 02/20/25 09:33 Mode of Arrival: Ambulatory Source of Information: Patient Description of Symptoms (Recalled from ER Triage Doc. by RN): pt presents to ED with c/o left sided abdominal pain and vomitting. pt reports that she does have a hernia and has intermittent problems with this. pt reports vomitting began last night, pain ongoing for the past couple of days. History of Present Illness HPI narrative: Please note that above description of symptoms, in this electronic medical record under categorization of recalled from ER triage doctor by RN are reflective of an initial nursing assessment, however, is not reflective of my full history and physical exam that was personally taken and clarified. Consequentially, this preceding description of symptoms, which may include the patient's categorized chief complaint in the EMR, do not reflect my personal clinical impression, and the ultimate description of history of present illness and patient stated complaints should be deferred to this section of the note. Unless stated otherwise or congruent with this section of the note, additional signs, symptoms, or incongruence should be interpreted as inaccurate with my clinical impression. Related Data Allergies Allergy/AdvReac Type Severity Reaction Status Date / Time hydrocodone Allergy Unknown ITCHY,DIZZY Verified 05/19/19 14:48 ,VOMITING oxycodone Allergy Unknown ITCHY,DIZZY Verified 05/19/19 14:48 ,VOMITING escitalopram (From Lexapro) Allergy Verified 05/19/19 14:[address] [facility] Disclaimer: The information contained in this section may have been updated after the patient was seen, as this information can be updated by other users. Social History Smoking Status: Former smoker alcohol intake: never current occupational status: other Travel in the last 8 weeks: None Have you lived/traveled outside [place] in past 30 days?: No Contact w/someone who lives/traveled outside US past 30 days?: No Exposure to someone with infectious disease in past 14 days?: No Do you have a fever (greater than 100.4 F or 38 C)?: No Have you tested positive for COVID-19: No Exposed to someone with COVID-19 in past 14 days?: No Do you have a sore throat?: No Do you have a cough?: No Do you have any weakness?: No Do you have any diarrhea?: No Are you experiencing any unusual bleeding?: No Do you have any muscle aches/pain?: No Do you have any abdominal pain?: Yes Are you experiencing loss of taste or smell?: No Other Medical History Have you received the Flu Vaccine for this season: No Have you received the Pneumonia Vaccine: No ROS Obtained: Yes All systems reviewed & no additional complaints except as documented Physical Exam General General appearance: alert and in no apparent distress Head Head exam: atraumatic and normocephalic Eye Eye exam: Present normal appearance, PERRL and EOMI Neck Neck exam: Present normal inspection, full ROM and trachea midline Respiratory Respiratory exam: Absent respiratory distress, wheezes, stridor, accessory muscle use or prolonged expiratory phase Cardiovascular Cardiovascular exam: Present regular rate, normal rhythm and other (Pulses equal symmetric in upper and lower extremities) Abdominal Exam Abdominal exam: Present soft and tenderness; Absent distention, guarding, rebound, rigidity or pulsatile mass Abdominal tenderness: Present LUQ and mild Extremities Exam Extremities exam: Absent edema Neurological Exam Neurological exam: Present alert, oriented X3 and CN II-XII intact; Absent motor sensory deficit Skin Skin exam: Present warm and dry; Absent diaphoresis or erythema Medical Decision Making Medical Records Medical records reviewed: Yes I reviewed the patient's medical records. Screening: Per USPSTF and CDC recommendations, given the prevalence of disease in our region, it is our hospital?s policy to screen for HIV and viral Hepatitis for all patients aged 18 and over and those with ongoing risk factors. Sanjay Inquiry Pt receiving controlled substance: No Sanjay was queried for this patient: No Vital Signs: 02/20/25 09:32 02/20/25 09:45 02/20/25 10:00 Temperature 98.5 F Temperature Source Oral Pulse Rate 89 81 Pulse Rate [Left Radial] 97 H Respiratory Rate 16 16 Blood Pressure 125/66 Blood Pressure [Right Arm] 147/80 H Blood Pressure Mean 84 Blood Pressure Mean [Right Arm] 102 Blood Pressure Source [Right Arm] Automatic Cuff Blood Pressure Position [Right Arm] Supine 02 Sat by Pulse Oximetry 98 98 96 Oxygen Delivery Method Room Air 02/20/25 10:30 02/20/25 11:00 02/20/25 11:30 Temperature Temperature Source Pulse Rate 86 84 86 Pulse Rate [Left Radial] Respiratory Rate 16 Blood Pressure 126/67 98/64 L 112/69 Blood Pressure [Right Arm] Blood Pressure Mean 71 Blood Pressure Mean [Right Arm] Blood Pressure Source [Right Arm] Blood Pressure Position [Right Arm] 02 Sat by Pulse Oximetry 93 L 93 L 96 Oxygen Delivery Method Room Air Room Air 02/20/25 12:30 Temperature Temperature Source Pulse Rate 86 Pulse Rate [Left Radial] Respiratory Rate Blood Pressure 115/61 Blood Pressure [Right Arm] Blood Pressure Mean Blood Pressure Mean [Right Arm] Blood Pressure Source [Right Arm] Blood Pressure Position [Right Arm] 02 Sat by Pulse Oximetry 99 Oxygen Delivery Method Lab Data Lab Results 02/20/25 09:31: Urine Color Yellow, Urine Appearance Clear, Urine pH 6.0, Ur Specific Ralston >= 1.030, Urine Protein Trace, Urine Glucose (UA) Negative, Urine Ketones Negative, Urine Blood 1+ A, Urine Nitrate Negative, Urine Bilirubin Negative, Urine Urobilinogen 0.2, Ur Leukocyte Esterase Trace, Urine RBC Occasional, Urine WBC 3-5, Ur Squamous Epith Cells Occasional, Amorphous Sediment 2+, Urine Bacteria Trace 02/20/25 09:35: HCV Ab RANDAL w/Rflx PCR Qn Negative, HIV Ag/Ab Combo Qual Negative 02/20/25 09:54: VBG pH 7.33, VBG pCO2 42.4, VBG pO2 35.3, VBG HCO3 21.6 L, VBG Total CO2 22.9 L, VBG O2 Saturation 67.5, VBG Base Excess -4.4 L, VBG Lactic Acid 1.8 02/20/25 09:55: WBC 11.6 H, RBC 4.81, Hgb 14.4, Hct 42.9, MCV 89.2, MCH 29.9, MCHC 33.6, RDW 13.0, Plt Count 277, MPV 9.3, Neut % (Auto) 91.8 H, Lymph % (Auto) 3.5 L, Mchenry % (Auto) 3.1, Eos % (Auto) 0.9, Baso % (Auto) 0.3, Neut # (Auto) 10.7 H, Lymph # (Auto) 0.4 L, Mchenry # (Auto) 0.4, Eos # (Auto) 0.1, Baso # (Auto) 0.0, Total Counted 100, Neutrophils % (Manual) 92 H, Lymphocytes % (Manual) 6 L, Monocytes % (Manual) 2, Platelet Estimate Normal, RBC Morphology Normal, Sodium 142, Potassium 3.8, Chloride 106, Carbon Dioxide 25, Anion Gap 14.8, BUN 20 H, Creatinine 0.80, Estimated Creat Clear 74, Estimated GFR 73, Est GFR ( Amer) 88, Glucose 133 H, Calcium 9.9, Total Bilirubin 0.9, AST 37 H, ALT 34, Alkaline Phosphatase 81, Total Protein 8.6 H, Albumin 4.9, Globulin 3.7 H, Albumin/Globulin Ratio 1.3, Lipase 67 02/20/25 09:55 02/20/25 09:55 Orders (Tests/Meds): ED MEDICATIONS Discontinued Medications Generic Name Dose Route Start Last Admin Trade Name Freq PRN Reason Stop Dose Admin Sodium Chloride 1,000 mls @ 999 mls/hr 02/20/25 09:53 02/20/25 10:11 Sod Chlor 0.9% 1000ml Bag IV 03/29/25 10:53 999 mls/hr .Q1H1M ONE Administration Iopamidol 75 ml 02/20/25 12:01 02/20/25 12:01 Iopamidol-370 (76%);100ml Bottle IV 02/20/25 12:02 75 ml ONCE ONE Administration Ketorolac Tromethamine 15 mg 02/20/25 09:53 02/20/25 10:10 Ketorolac 30mg/Ml Vial IV 02/20/25 09:54 15 mg ONCE ONE Administration Ondansetron HCl 4 mg 02/20/25 09:53 02/20/25 10:11 Ondansetron 4mg/2ml Vial IV 02/20/25 09:54 4 mg ONCE ONE Administration Sodium Chloride 10 ml 02/20/25 12:01 02/20/25 12:01 Sodium Chloride 0.9% 10ml Syr (Rad Only) IV 02/20/25 12:02 10 ml ONCE ONE Administration ORDERS Category Date Time Status CT abdomen pelvis w con Stat Cat Scan 02/20/25 11:48 Completed CBC w/Auto Diff [Complete Blood Count Auto Diff] Stat Lab 02/20/25 09:55 Completed CMP [Comprehensive Metabolic Panel] Stat Lab 02/20/25 09:55 Completed HIV Combo Stat Lab 02/20/25 09:35 Completed Hepatitis C Ab Qual. W/ RFX Stat Lab 02/20/25 09:35 Completed Lipase Stat Lab 02/20/25 09:55 Completed UA [Urinalysis and Microscopic] Stat Lab 02/20/25 09:31 Completed VBG [Venous Blood Gas] Stat RT 02/20/25 09:54 Completed Medical Decision Narrative: 59-year-old female history of hypertension, hyperlipidemia, fibromyalgia, IBS, hiatal hernia presenting with vomiting and diarrhea. Patient states that she has had 6 episodes of vomiting and diarrhea that lasted a few days over the past 6 months or so. States that they last a couple of days, vomiting, diarrhea, weight loss, then generally self resolved. States that she think she is having symptoms due to her hiatal hernia, but unsure. Woke up in the middle of the night last night, 02/19 and had multiple episodes of vomiting and diarrhea. Nonbloody, nonbilious vomiting, nonbloody diarrhea. No fevers or chills or systemic signs or symptoms. States that she has been shaking a little bit when she has been throwing up and having sweats around throwing up, but has not felt hot or febrile. 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 History was obtained via conversation with patient. On arrival, patient hemodynamically stable, alert, oriented x4, appropriate, GCS 15, moving all extremities spontaneously, pupils equal and reactive to light. Full physical exam performed and significant for very clinically well-appearing female who is in no acute distress, but borderline tachycardic with heart rate in the 90s. Normotensive, hypertensive if anything. Lungs are clear, abdomen is soft, nondistended, minimally tender left upper quadrant and some in the left lower quadrant.. Differential includes PUD, gastritis, enteritis, gastroenteritis, pancreatitis, SBO, colitis, diverticulitis, nephrolithiasis, UTI, cholecystitis, choledocholithiasis, appendicitis, torsion, hepatitis, aortic pathology, mesenteric ischemia among others Patient placed on continuous cardiac monitoring and continuous pulse ox with initial blood pressure 147/80, heart rate 87, saturation 98% on room air. Patient was given fluids and Zofran for symptomatic management and correction of underlying abnormalities. Workup independently interpreted and significant for mild leukocytosis 11.6, but nonactionable overall. VBG with normal pH, mildly decreased bicarb of 21.6. Negative lactate. Chemistry nonactionable, lipase negative. UA with blood isolated. Reevaluation, patient states that she still having pain, wants to make sure she does not have a kidney stone or some kind of abnormality with her hernia. Although her symptoms are largely resolved at this point with fluids and Zofran, I do not feel this is unreasonable. CT ordered. On independent interpretation of imaging, no evidence of current hiatal hernia. Incidental left renal cyst, no evidence of acute intra-abdominal pathology otherwise. See radiology read for full review of final results. On reevaluation, patient resting comfortably. Given patient presentation, workup, history, this most likely represents gastroenteritis. because patient at baseline without signs or symptoms of clinical decompensation, deemed appropriate for discharge. Results were relayed to patient who voiced understanding and were agreeable to outpatient management and follow up. I discussed my clinical impression with patient and answered all questions. At this time, the evidence for any other entities in the differential is insufficient to warrant any further testing or ED observation. This was explained as well. Advisory was given that persistent or worsening symptoms require further evaluation. I confirmed the understanding of this discussion. Preflight Inspector disclaimer Much of this encounter note is an electronic frame tender spoken language to printed text. Electronic frame tender of the spoken language may permit errors. Although I have reviewed the note, some errors may still exist. Critical Care Critical Care Time Critical Care Time: No
[2025-02-20 10:29] LABS: MANUAL DIFFERENTIAL MANUAL DIFFERENTIAL (MANUAL DIFF)
[2025-02-20 10:52] LABS: HIV Combo NEGATIVE (Negative)
[2025-02-20 11:00] LABS: Hepatitis C Ab Qual. W/ RFX NEGATIVE (Negative)
--- NOTE | 2025-02-20 11:05 | PC.NURSE ---
provided pt warm blanket.
[2025-02-20 11:11] LABS: Amorphous Sediment,Urine 2+ /lpf; Bacteria,Urine Trace /lpf; RBC,Urine Occasional #/hpf (0-3); Squamous Epithelial Cell,Urine Occasional #/hpf (0-5)
--- NOTE | 2025-02-20 11:48 | CT_ITS ---
PROCEDURE INFORMATION: Exam: CT Abdomen And Pelvis With Contrast Exam date and time: 02/20/2025 12:01 PM Age: 59 years old Clinical indication: Abdominal pain; Additional info: L flank and luq pain with vomiting TECHNIQUE: Imaging protocol: Computed tomography of the abdomen and pelvis with contrast. Radiation optimization: All CT scans at this facility use at least one of these dose optimization techniques: automated exposure control; mA and/or kV adjustment per patient size (includes targeted exams where dose is matched to clinical indication); or iterative reconstruction. Contrast material: ISOVUE; Contrast volume: 75 ml; Contrast route: IV; COMPARISON: No relevant prior studies available. FINDINGS: Lungs: Visualized lung bases are clear. Liver: There is diffuse fatty infiltration of the liver. Gallbladder and biliary ducts: The gallbladder has been resected. Pancreas: Normal. No ductal dilation. Spleen: Normal. No splenomegaly. Adrenal glands: Normal. No mass. Kidneys and ureters: Bilateral likely benign renal cysts are present, requiring no further evaluation, as large as 3.0 x 3.3 cm. No hydroureteronephrosis or obstructing calculus identified. Contrast within the collecting system may obscure underlying nonobstructing calculus. Stomach and bowel: Unremarkable. No obstruction. No mucosal thickening. There are scattered diverticuli involving the colon. Appendix: No evidence of appendicitis. Intraperitoneal space: Unremarkable. No free air. No significant fluid collection. Vasculature: There is moderate atherosclerosis of the aorta without aneurysm.The visualized aortic branch vessels are patent. Lymph nodes: Benign-appearing 1 cm right paraesophageal calcified lymph node series 6, image 5 may be secondary to previous granulomatous disease. No suspicious adenopathy identified. Urinary bladder: Unremarkable as visualized. Reproductive: Unremarkable as visualized. Bones/joints: Unremarkable. No acute fracture. Soft tissues: Unremarkable. IMPRESSION: 1. No acute process identified. 2. Fatty liver. 3. Cholecystectomy.
[2025-02-20 11:59] LABS: Lymphocytes % 6 % (10-50); Monocytes % 2 % (2-9); Neutrophils % 92 % (42-76); Platelet Estimate Normal; RBC Morphology Normal; Total Cells Counted 100
[2025-02-20] MEDS: IOPAMIDOL-370 (76%);100ML BOTTLE 75 ML IV (12:01)
[2025-02-20] MEDS: SODIUM CHLORIDE 0.9% 10ML SYR (RAD ONLY) 10 ML IV (12:01)
== END 2025-02-20 13:33 | disposition home or self-care (01) ==
PROVIDERS: Emergency Provider Emergency Medicine; PCP Nurse Practitioner Family
DX: K58.9 Irritable bowel syndrome, unspecified (principal); R10.32 Left lower quadrant pain; R11.10 Vomiting, unspecified; R63.4 Abnormal weight loss; I10 Essential (primary) hypertension; E78.5 Hyperlipidemia, unspecified; M79.7 Fibromyalgia; K44.9 Diaphragmatic hernia without obstruction or gangrene; D72.829 Elevated white blood cell count, unspecified; N28.1 Cyst of kidney, acquired; Z68.32 Body mass index [BMI] 32.0-32.9, adult; Z88.5 Allergy status to narcotic agent; Z88.8 Allergy status to other drugs, medicaments and biological substances
CPT/HCPCS: 74177; 80053; 81001; 82803; 83690; 85007; 85025; 85027; 86803; 87389; 96374; 96375; 99285; J1885; J2405; J7030; Q9967

== ENCOUNTER 2025-04-02 15:01 | Outpatient (CLI) | payer BC, SELFPAY ==
[2025-04-05 07:21] LABS: Pancreatic Elastase, Fecal >800 (>200)
== END 2025-04-02 23:59 | disposition home or self-care (01) ==
LOC: LAB 15:01
PROVIDERS: PCP Nurse Practitioner Family; Visit Provider Nurse Practitioner Family
DX: R14.0 Abdominal distension (gaseous) (principal)
CPT/HCPCS: 82656

== ENCOUNTER 2025-04-06 14:28 | Outpatient (CLI) | payer BC, SELFPAY | END 2025-04-06 23:59 | disposition home or self-care (01) | LOC: DIETICIAN 14:29 | PROVIDERS: PCP Nurse Practitioner Family; Visit Provider Nurse Practitioner Family | DX: K31.84 Gastroparesis (principal) | CPT/HCPCS: 97802 ==

== ENCOUNTER 2025-06-07 09:25 | Day surgery (SDC) | payer BC, SELFPAY ==
[2025-06-03 16:37] VITALS: BMI 32.0
[2025-06-07] MEDS: LACTATED RINGERS 1000ML 1,000 ML 50 ML IV (10:17)
[2025-06-07 10:18] VITALS: BP 152/80; PULSE 72; RESP 20; TEMP 36.1; O2SAT 98
--- NOTE | 2025-06-07 10:27 | P.PNANES_ITS ---
[facility] Disclaimer: The information contained in this section may have been updated after the patient was seen, as this information can be updated by other users. Medical History (Updated 06/03/25 @ 16:37 by Rosenda Paez RN) Allergies Vitamin deficiency Surgical History H/O esophagogastroduodenoscopy Hx of colonoscopy Hx of cholecystectomy Family History (Updated 06/03/25 @ 16:37 by Rosenda Paez RN) Other No significant family history Social History (Updated 06/03/25 @ 16:35 by Rosenda Paez RN) Smoking Status: Former smoker alcohol intake: never substance use type: denies use current occupational status: other Travel in the last 8 weeks?: None [facility] Anesthesia Checklist Patient Identification Patient Identification: Verbal (Name & ) Structural Data Admitted From: Home Planned Operative Procedure/s: egd/colon Consent for Planned Operative Procedure(s) Verified: Yes NPO Status Verified Time NPO: 00:00 Airway Assessment Mallampati Score:: Class II C-Spine Mobility Assessed: Yes TMJ Mobility Assessed: Yes Dentition: Partials Neurological Assessment Level of Consciousness: Awake, Alert and Appropriate Anesthesia Plan Anesthesia Risk discussed: Yes Anesthesia Plan: Verified ASA Class: II Anesthesia Type: MAC
--- NOTE | 2025-06-07 10:39 | EXP.HP ---
History of Present Illness *Admission Date: 06/07/25 *Reason for visit:: Nausea, vomiting and diarrhea *History of present illness: Mrs. Rodriguez is a 59-year-old female who is here for diagnostic EGD and colonoscopy secondary to nausea, vomiting and diarrhea. She does report a history of gastroparesis. The examination is deemed medically necessary for diagnostic EGD and colonoscopy. The patient has been seen, interviewed and examined prior to the procedure by both myself and the anesthesia provider. [facility] Disclaimer: The information contained in this section may have been updated after the patient was seen, as this information can be updated by other users. Medical History (Updated 06/03/25 @ 16:37 by Rosenda Paez RN) Allergies Vitamin deficiency Surgical History H/O esophagogastroduodenoscopy Hx of colonoscopy Hx of cholecystectomy Family History (Updated 06/03/25 @ 16:37 by Rosenda Paez RN) Other No significant family history Social History (Updated 06/07/25 @ 10:28 by Dangelo Santamaria CRNA) Smoking Status: Former smoker alcohol intake: never substance use type: denies use current occupational status: other Travel in the last 8 weeks?: None Have you lived/traveled outside [place] in past 30 days?: No Contact w/someone who lives/traveled outside US past 30 days?: No Exposure to someone with infectious disease in past 14 days?: No Do you have a fever (greater than 100.4 F or 38 C)?: No Have you tested positive for COVID-19?: No Exposed to someone with COVID-19 in past 14 days?: No Do you have a sore throat?: No Do you have a cough?: No Do you have any weakness?: No Do you have any diarrhea?: No Are you experiencing any unusual bleeding?: No Do you have any muscle aches/pain?: No Do you have any abdominal pain?: No Are you experiencing loss of taste or smell?: No Other Medical History Have you received the Flu Vaccine for this season: No Have you received the Pneumonia Vaccine: No Review of Systems Review of Systems Review of systems (narrative): Negative *Cardiovascular Comments: Negative *Gastrointestinal Comments: Negative *Genitourinary Comments: Negative *Musculoskeletal Comments: Negative *Neurologic Comments: Negative Meds Home Medications and Allergies Home Medications ?Medication ?Instructions ?Recorded ?Confirmed ?Type buspirone 5 mg tablet 5 mg PO DAILY 02/20/25 06/03/25 History Saccharomyces boulardii 250 mg 250 mg PO BID 04/01/25 06/03/25 History capsule (Probiotic (S.boulardii)) ashwagandha extract 120 mg capsule 120 mg PO DAILY 04/01/25 06/03/25 History cetirizine 10 mg capsule (Zyrtec) 10 mg PO DAILY PRN allergies 04/01/25 06/03/25 History digestive enzymes 1 cap PO DAILY 04/01/25 06/03/25 History esomeprazole magnesium 20 mg 20 mg PO DAILY 04/01/25 06/03/25 History capsule,delayed release (Nexium) guaifenesin 600 mg tablet, 600 mg PO Q12H PRN Cough 04/01/25 06/03/25 History extended release 12 hr (Mucinex) magnesium glycinate 100 mg (as 275 mg PO DAILY 04/01/25 06/03/25 History glycinate) tablet magnesium oxide 250 mg PO DAILY 04/01/25 06/03/25 History milk thistle 150 mg capsule 150 mg PO BID 04/01/25 04/01/25 History omega 8-cfe-tck-fish oil 60 mg-90 1 cap PO DAILY 04/01/25 06/03/25 History mg-500 mg capsule (Fish Oil) sodium,potassium,mag sulfates 17.5 See Rx Instructions PO .COMPLEX 05/31/25 06/03/25 Rx gram-3.13 gram-1.6 gram oral soln #354 mL (Suprep Bowel Prep Kit) New Prescriptions to Start Prescriptions: Allergies Allergy/AdvReac Type Severity Reaction Status Date / Time hydrocodone Allergy Unknown ITCHY,DIZZY Verified 04/01/25 14:40 ,VOMITING oxycodone Allergy Unknown ITCHY,DIZZY Verified 04/01/25 14:40 ,VOMITING acetaminophen (From Lortab) Allergy Hives Verified 06/03/25 16:33 escitalopram (From Lexapro) Allergy ITCHY,DIZZY Verified 04/01/25 14:40 ,VOMITING Exam Data for Last 24 hours Vital signs and Labs for Last 24 Hours: Temp Pulse Resp BP Pulse Ox O2 Del Method 97.0 F L 72 20 152/80 H 98 Room Air 06/07/25 10:18 06/07/25 10:18 06/07/25 10:18 06/07/25 10:18 06/07/25 10:18 06/07/25 10:18 *Routine HEENT Exam Head: Present normocephalic Eye: Present EOMI and PERRL ENT: Present mucous membranes moist *Routine Neck Exam Neck: Present supple *Routine Respiratory Exam Respiratory: Present CTA bilaterally *Routine Cardiovascular Exam Cardiovascular: Present RRR *Routine Abdominal Exam Abdominal: Present soft and normoactive bowel sounds; Absent tenderness *Routine Rectal Exam Rectal:: deferred *Routine Genitalia Exam Genitalia:: deferred *Routine Extremities Exam Extremities: Absent cyanosis, clubbing or edema *Routine Skin Exam Skin: Present warm; Absent rash *Routine Neurological Exam Neurological: Present alert and oriented X3 Assessment and Plan *Assessment and plan (1) Nausea & vomiting: Status: Acute Category: Medical Code(s): R11.2 - Nausea with vomiting, unspecified (2) Diarrhea: Status: Acute Category: Medical Code(s): R19.7 - Diarrhea, unspecified (3) Bloating: Status: Acute Category: Medical Code(s): R14.0 - Abdominal distension (gaseous) (4) Gastroparesis: Status: Acute Category: Medical Code(s): K31.84 - Gastroparesis Plan A/P: 1. Nausea, vomiting, diarrhea and bloating with prior history of gastroparesis is the preprocedural diagnosis. The patient will be anesthetized/sedated using MAC sedation. The patient has been seen and examined. Cardiac and lung assessment prior to the examination is stable. Proceed with planned EGD and colonoscopy.
--- NOTE | 2025-06-07 10:56 | P.PCN_ITS ---
[facility] Procedure Note Date: 06/07/25 Time: 10:56 Procedure Note:: Upper Endoscopy Procedure Report: Esophagogastroduodenoscopy with cold biopsies Endoscopost: Crow Dickson II, MD Referring Physician: AUDI Zavala Date of Procedure: June 07, 2025 Equipment: Olympus GIF 190 standard upper endoscope Sedation: MAC sedation Indications: Mrs. Rodriguez is a 59-year-old female who is here for diagnostic EGD and colonoscopy. She has had longstanding dyspepsia and IBS. She does have frequent nausea at least once a week and intermittent vomiting. She has longstanding GERD and has been on Nexium which helps to control this. She reports intermittent left upper quadrant abdominal pain, bloating, gassiness and belching. She does have early satiety. She was diagnosed with gastroparesis years ago. The patient has improved with a fiber bowel regimen (combined MiraLAX plus Citrucel) and buspirone. She does report alternating IBS with both diarrhea and constipation. She will have more regular bowel movements now on the fiber bowel regimen. She reports no dysphagia or unintentional weight loss. She has had no melena or hematochezia. She reports no bright red blood per rectum or family history of colon cancer. Her last endoscopy and colonoscopy were more than 10 years ago. Procedure: Prior to the procedure, a history and physical exam was performed, and patient's medications and allergies were reviewed. The risks, benefits and alternatives of the sedation and procedure were discussed with the patient. All questions were answered and informed consent was obtained. The patient was brought to the procedure room. Patient identification and proposed procedure were verified by the physician and the nurse. The patient was placed in a left lateral decubitus position and the scope was passed under direct vision. Throughout the procedure, the patient's blood pressure, pulse, and oxygen saturations were monitored continuously. The upper GI endoscopy was accomplished without difficulty. The patient tolerated the procedure well. Findings: The scope was passed directly into the upper esophagus and advanced to the fourth portion of duodenum and proximal jejunum. A cold biopsy was taken from the proximal jejunum for disaccharidase assay. The proximal jejunum, post bulbar duodenum, ampulla and duodenal bulb were normal with normal mucosa and conniventes. The scope was withdrawn through a normal duodenal bulb and pylorus into the stomach. There was moderate bile reflux with mild linear reactive gastropathy of the antrum. There was moderate chronic gastritis of the proximal stomach. Cold biopsies were obtained to rule out H. pylori. The scope was then withdrawn into the esophagus. There was no evidence of reflux esophagitis. Biopsies were taken from the GE junction to rule out intestinal metaplasia. There were tertiary contractions and evidence of mild esophageal dysmotility. The remainder of the esophageal mucosa was normal. Impression: 1. Nonerosive GERD with mild esophageal dysmotility 2. Bile reflux with mild linear gastropathy of antrum and moderate chronic gastritis Plan: The patient does have longstanding functional dyspepsia, functional GERD and IBS. She is improved with the fiber bowel regimen (combined MiraLAX plus Citrucel) and buspirone. I will follow-up the biopsies and discuss additional treatment options. I will proceed with diagnostic colonoscopy.
--- NOTE | 2025-06-07 11:00 | HMH.PROCNOTE ---
[facility] Procedure Note Date: 06/07/25 Time: 11:11 Procedure Note:: Colonoscopy Procedure Report: Colonoscopy Endoscopist: Crow Dickson II, MD Referring physician: AUDI Zavala Date of Procedure: June 07, 2025 Equipment: Olympus 190 variable stiffness pediatric colonoscope Sedation: MAC sedation Indication: Mrs. Rodriguez is a 59-year-old female who is here for diagnostic EGD and colonoscopy. She has had longstanding dyspepsia and IBS. She does have frequent nausea at least once a week and intermittent vomiting. She has longstanding GERD and has been on Nexium which helps to control this. She reports intermittent left upper quadrant abdominal pain, bloating, gassiness and belching. She does have early satiety. She was diagnosed with gastroparesis years ago. The patient has improved with a fiber bowel regimen (combined MiraLAX plus Citrucel) and buspirone. She does report alternating IBS with both diarrhea and constipation. She will have more regular bowel movements now on the fiber bowel regimen. She reports no dysphagia or unintentional weight loss. She has had no melena or hematochezia. She reports no bright red blood per rectum or family history of colon cancer. Her last endoscopy and colonoscopy were more than 10 years ago. Procedure: Prior to the procedure, a history and physical exam was performed, and patient's medications and allergies were reviewed. The risks, benefits and alternatives of the sedation and procedure were discussed with the patient. All questions were answered and informed consent was obtained. The patient was brought to the procedure room. Patient identification and proposed procedure were verified by the physician and the nurse. The patient was placed in a left lateral decubitus position and the scope was passed under direct vision. Throughout the procedure, the patient's blood pressure, pulse, and oxygen saturations were monitored continuously. The colonoscopy was accomplished without difficulty. The patient tolerated the procedure well. Findings: On digital rectal examination there was normal rectal tone. There were no external hemorrhoids. The colonoscope was introduced through the anal canal to the rectum and advanced to the cecum. The ileocecal valve and appendiceal orifice were identified. The scope was advanced a short distance into the ileum which appeared grossly normal. The scope was then withdrawn into the colon. The cecum, ascending and transverse colon and mucosa were grossly normal. There were scattered diverticuli throughout the descending and sigmoid colon (LEFT colon). The rectum itself was normal. Upon retroflexion within the rectum there were grade 2 internal hemorrhoids. The preparation was excellent throughout with Heiskell Preparation Score of 9. The cecal time was 10 minutes. Impression: 1. Left-sided diverticulosis 2. Grade 2 internal hemorrhoids Plan: The patient will not require surveillance colonoscopy again for 10 years by ACS guidelines. I would continue the fiber bowel regimen (combined MiraLAX plus Citrucel) on a long-term daily maintenance basis.
[2025-06-07 11:14] VITALS: BP 117/70; PULSE 74; RESP 15; TEMP 36.5; O2SAT 94
[2025-06-07 11:24] VITALS: BP 103/61; PULSE 68; RESP 17; TEMP 36.5; O2SAT 99
[2025-06-07 11:34] VITALS: BP 120/60; PULSE 70; RESP 17; TEMP 36.5; O2SAT 95
[2025-06-07 11:44] VITALS: BP 128/70; PULSE 70; RESP 18; TEMP 36.5; O2SAT 97
[2025-06-10 16:12] LABS: Interpretation Notes (.); Lactase 31.77 (>/= 14.0); Maltase 271.39 (>/= 110.0); Palatinase 34.28 (>/= 8.5); Reference Notes (.); Sucrase 162.28 (>/= 25.0)
== END 2025-06-07 12:07 | disposition home or self-care (01) ==
PROVIDERS: PCP Nurse Practitioner Family; Visit Provider Internal Medicine Gastroenterology
PROC: 0DJ08ZZ Inspection of Upper Intestinal Tract, Via Natural or Artificial Opening Endoscopic (ICD-10-PCS; CPT 45378; principal; 2025-06-07 11:00)
DX: K31.7 Polyp of stomach and duodenum (principal); K21.00 Gastro-esophageal reflux disease with esophagitis, without bleeding; K57.30 Diverticulosis of large intestine without perforation or abscess without bleeding; K64.1 Second degree hemorrhoids; K22.4 Dyskinesia of esophagus; K29.50 Unspecified chronic gastritis without bleeding; K30 Functional dyspepsia; K58.2 Mixed irritable bowel syndrome; Z87.891 Personal history of nicotine dependence; Z79.899 Other long term (current) drug therapy; Z88.5 Allergy status to narcotic agent; Z88.8 Allergy status to other drugs, medicaments and biological substances
CPT/HCPCS: 43239; 45378; 82657; J2003; J2704; J7120